=== PATIENT | female | born 1995 | race Asian ===

== ENCOUNTER 2017-10-04 19:53 | Emergency (ER) | payer SELFPAY ==
[2017-10-04 20:02] VITALS: BP 103/62
--- NOTE | 2017-10-04 20:36 | ED ---
Laceration/Wound HPI - HPI Summary HPI Summary: 22-year-old female presents with right index finger laceration today. States she cut it on a can. She states her immunizations are up-to-date. No active bleeding. No numbness or tingling. Has full range of motion. Is right- handed. Is a student at [employer]. no foreign body in wound. - History of Current Complaint Stated Complaint: FINGER LACERATION Time Seen by Provider: 10/04/17 20:18 Hx Last Menstrual Period: 09/15/17 Pain Intensity: 4 - Allergy/Home Medications Allergies/Adverse Reactions: Allergies Allergy/AdvReac Type Severity Reaction Status Date / Time No Known Allergies Allergy Verified 10/04/17 20:02 Home Medications: Home Medications NK [No Home Medications Reported] 10/04/17 [History Confirmed 10/04/17] PMH/Surg Hx/FS Hx/Imm Hx Endocrine/Hematology History: Denies: Hx Anticoagulant Therapy Cardiovascular History: Denies: Hx Hypertension - Surgical History Surgery Procedure, Year, and Place: benign breast lump removed Infectious Disease History: No Infectious Disease History: Denies: Traveled Outside the [place] in Last 30 Days - Family History Known Family History: Negative: Diabetes - Social History Alcohol Use: None Substance Use Type: Reports: None Smoking Status (MU): Never Smoked Tobacco Review of Systems Negative: Fever Negative: Chest Pain Negative: Shortness Of Breath Positive: Other - lac to right index All Other Systems Reviewed And Are Negative: Yes Physical Exam Triage Information Reviewed: Yes Vital Signs On Initial Exam: Initial Vitals Temp Pulse Resp BP Pulse Ox 98 F 70 18 103/62 100 10/04/17 19:57 10/04/17 19:57 10/04/17 19:57 10/04/17 19:57 10/04/17 19:57 Vital Signs Reviewed: Yes Appearance: Positive: Well-Appearing Skin: Positive: Warm, Dry, Other - 1 1/2cm superficial laceration of middle phalanx of right index finger Head/Face: Positive: Normal Head/Face Inspection Eyes: Positive: Normal, Conjunctiva Clear ENT: Positive: Pharynx normal Respiratory/Lung Sounds: Positive: Clear to Auscultation, Breath Sounds Present Cardiovascular: Positive: Normal, RRR Musculoskeletal: Positive: Strength/ROM Intact - right index finger, Other - capillary refill<2 secs Neurological: Positive: Normal Psychiatric: Positive: Normal Procedures - Laceration/Wound Repair 1 Location: Other - right index finger Description: Linear Length, Depth and Shape: 1 1/2cm superficial Irrigated w/ Saline (ccs): 40 Laceration/Wound Explored: no foreign body removed Closure: Skin Adhesive, SteriStrips Sterile Dressing Applied?: No - telfa and metal finger splint Diagnostics - Vital Signs Vital Signs Temp Pulse Resp BP Pulse Ox 10/04/17 19:57 98 F 70 18 103/62 100 - Laboratory Lab Statement: Any lab studies that have been ordered have been reviewed, and results considered in the medical decision making process. Laceration Repair Course/Dx - Course Course Of Treatment: 22-year-old female presents with right index finger laceration today. States she cut it on a can. She states her immunizations are up-to-date. No active bleeding. No numbness or tingling. Has full range of motion. Is right-handed. Is a student at [employer]. no foreign body in wound. On exam has one and half centimeter superficial laceration to the middle phalanx of right index finger that cleaned and Place: Steri-Strips. Told to keep in splint for the next couple days until starts to heal. patient understand and agrees with plan. - Differential Dx Differental Diagnoses: Abrasion, Avulsion, Laceration - Clinical Impression Provider Diagnoses: Laceration of right index finger Discharge - Sign-Out/Discharge Documenting (check all that apply): Patient Departure All imaging exams completed and their final reports reviewed: No Studies - Discharge Plan Condition: Good Disposition: HOME Patient Education Materials: Skin Adhesive Care (ED) Referrals: No Primary Care Phys,NOPCP [Primary Care Provider] - Additional Instructions: Place ice on area Take Tylenol or ibuprofen for pain as needed every 6 hours Keep dry for 24 hours Glue will fall off on own, avoid soaking area keep splint on for next 3 days Avoid scrubbing area Return to ED if develop any signs of infection or any new or worsening symptoms - Billing Disposition and Condition Condition: GOOD Disposition: Home
== END 2017-10-04 20:50 | disposition home or self-care (01) ==
LOC: UCEAST 19:53
DX: S61.210A Laceration without foreign body of right index finger without damage to nail, initial encounter (principal); W26.8XXA Contact with other sharp object(s), not elsewhere classified, initial encounter; Y93.9 Activity, unspecified; Y92.9 Unspecified place or not applicable
CPT/HCPCS: 12001; 99201; G0463

== ENCOUNTER 2017-12-16 10:11 | Day surgery (SDC) | payer OTHER ==
[~2017-12-16 10:11] MED LIST: Buffered Lidocaine 0.9% SYRIN* 5 ML/SYR SYRINGE INTRADERM ONE; Sodium Citrate/Citric Acid* 15 ML UDC ONE; Sodium Citrate/Citric Acid* 15 ML UDC PO ONE
[2017-12-16] MEDS ORDERED: ceFAZolin 2 GM PREMIX in ORs 2 GM/50 ML BAG IVPB ONE (10:21)
[2017-12-16] MEDS ORDERED: Bupivacaine 0.25% SDV* 30 ML ONE (10:57)
[2017-12-16] MEDS ORDERED: Naloxone* 0.4 MG/ML 1 ML VIAL IV PRN (11:11)
[2017-12-16] MEDS ORDERED: Propofol* 10 MG/ML 20 ML BTL IV PUSH ONE (11:49)
[2017-12-16] MEDS ORDERED: Lidocaine 2% PF * 5 ML VIAL ONE (11:49)
[2017-12-16] MEDS ORDERED: Midazolam* 1 MG/ML 2 ML VIAL (2 MG) ONE ×2 (11:49→11:56)
[2017-12-16] MEDS ORDERED: fentaNYL* 50 MCG/ML 2 ML VIAL (100 MCG VIAL) ONE (11:49)
[2017-12-16 13:02] VITALS: BP 89/54
--- NOTE | 2017-12-17 07:45 | RAD ---
INDICATION: Right index finger extensor tendon repair, no other history is provided. COMPARISONS: None relevant TECHNIQUE: Fluoroscopy was provided for a surgical procedure. Total fluoroscopy time is: 7 seconds FINDINGS: Spot images demonstrate percutaneous fixation of the second DIP joint. IMPRESSION: FLUOROSCOPY WAS PROVIDED FOR A SURGICAL PROCEDURE CPT II Codes: G9500
--- NOTE | 2017-12-17 08:44 | OP ---
DATE OF OPERATION: 12/16/17 - [facility] DATE OF : 89 SURGEON: Khoi Stewart MD AUTOMATIC VULCANIZING LEAD OPERATOR: HORTENCIA Quinones. An paperhanger assistant was needed for the procedure to aid in positioning of the finger and retraction. ANESTHESIOLOGIST: Dr. Martinez. ANESTHESIA: Local MAC. PRE-OP DIAGNOSIS: Right index finger subacute extensor tendon laceration over the middle phalanx with swan neck deformity. POST-OP DIAGNOSIS: Right index finger subacute extensor tendon laceration over the middle phalanx with swan neck deformity. OPERATIVE PROCEDURE: Repair of right index finger subacute extensor tendon laceration with distal interphalangeal joint pinning. INDICATIONS: Miguelina lacerated the extensor tendon several weeks ago. She has developed an extension lag and a little bit of a swan neck deformity in the finger. We had talked about risks and benefits of surgery and the risk of repairing the tendon versus leaving it the way it is as well as the benefit. She wanted to proceed with tendon repair. ESTIMATED BLOOD LOSS: 2 mL. COMPLICATIONS: None. FINDINGS: See above and below. DESCRIPTION OF PROCEDURE: Miguelina was seen in the preoperative holding area. The correct side and site of the procedure were identified. We came back to the operating room. The arm was prepped and draped in usual fashion. A time- out was performed. The arm was exsanguinated with the Esmarch and the tourniquet was inflated to 250 mmHg. I went ahead and reopened her traumatic laceration and extended this proximally and distally. Full thickness flaps were raised off of the extensor tendon. The disorganized tissue where the tendon was healing was noted. This was excised. Once I had cleaned healthy tendon edges proximally and distally, I went ahead and repaired it with 3 [id number] 3-0 FiberWire sutures. This was augmented with the running 5-0 Prolene suture. At this point, the tendon repair was very nice. The DIP joint sat in neutral position. The PIP joint was supple. I then took a 0.45 K-wire and passed it from the distal phalanx down across the DIP joint down to the subchondral bone of the middle phalanx with the finger in neutral extension. The wire was clipped just below the skin. The wound was irrigated out. The skin was closed with 4-0 nylon suture. Dressings were applied and an AlumaFoam clamshell splint was applied. Once I had the tendon repaired, I had switched the arm tourniquet out for a finger tourniquet. This was cut off as the dressings were being placed. The finger pinked up immediately. She was taken to recovery room in stable condition. [id number]/[facility] #: [id number] MTDD
== END 2017-12-16 13:39 | disposition home or self-care (01) ==
LOC: OREAST 10:11
PROVIDERS: ATTEND Orthopaedic Surgery Hand Surgery
DX: S66.320A Laceration of extensor muscle, fascia and tendon of right index finger at wrist and hand level, initial encounter (principal); M20.031 Swan-neck deformity of right finger(s); W26.8XXA Contact with other sharp object(s), not elsewhere classified, initial encounter; Y92.89 Other specified places as the place of occurrence of the external cause
CPT/HCPCS: 76000; 81025; A9270-GY; C1776; J0690; J2250; J2704; J3010